=== PATIENT | male | born 1985 | race Caucasian/White ===

== ENCOUNTER 2024-07-28 12:54 | Outpatient (CLI) | payer BC, SELFPAY | END 2024-07-28 12:55 | disposition home or self-care (01) | LOC: WOUND 12:57 | PROVIDERS: PCP Family Medicine; Visit Provider Nurse Practitioner Family | DX: I87.331 Chronic venous hypertension (idiopathic) with ulcer and inflammation of right lower extremity (principal); L97.819 Non-pressure chronic ulcer of other part of right lower leg with unspecified severity; D68.51 Activated protein C resistance; Z86.718 Personal history of other venous thrombosis and embolism; Z79.01 Long term (current) use of anticoagulants | CPT/HCPCS: G0463 ==

== ENCOUNTER 2024-08-04 15:21 | Outpatient (CLI) | payer BC, SELFPAY | END 2024-08-04 15:22 | disposition home or self-care (01) | LOC: WOUND 15:22 | PROVIDERS: PCP Family Medicine; Visit Provider Family Medicine | DX: I87.331 Chronic venous hypertension (idiopathic) with ulcer and inflammation of right lower extremity (principal); L97.812 Non-pressure chronic ulcer of other part of right lower leg with fat layer exposed; D68.51 Activated protein C resistance | CPT/HCPCS: 11042; 11045 ==

== ENCOUNTER 2024-08-18 15:29 | Outpatient (CLI) | payer BC, SELFPAY | END 2024-08-18 15:30 | disposition home or self-care (01) | LOC: WOUND 15:29 | PROVIDERS: PCP Family Medicine; Visit Provider Nurse Practitioner Family | DX: I83.91 Asymptomatic varicose veins of right lower extremity (principal); D68.51 Activated protein C resistance | CPT/HCPCS: G0463 ==